=== PATIENT | male | born 1965 ===

== ENCOUNTER 2016-12-31 08:54 | Inpatient (IN) | payer OTHER ==
[2016-12-27 08:05] VITALS: BMI 23.1
[2016-12-31] MEDS ORDERED: Rocuronium 10 mg/ml (10 ml) ONE (13:21)
[2016-12-31] MEDS ORDERED: Propofol 10 mg/ml Inj (20 ML) ONE (13:21)
[2016-12-31] MEDS ORDERED: Succinylcholine Chloride 20 mg/ml Syr (5 ml) IV ONE (13:21)
[2016-12-31] MEDS ORDERED: Midazolam 2 MG/2 ML VIAL ONE (13:21)
[2016-12-31] MEDS ORDERED: Lidocaine Hydrochloride 5 ML INJ ONE (13:21)
[2016-12-31] MEDS ORDERED: Lactated Ringer's 1,000 ML IV ONE ×3 (13:25→16:00)
[2016-12-31] MEDS ORDERED: EPINEPHrine 1:1000 Nasal Sol(30mL) ONE (13:28)
[2016-12-31] MEDS: ceFAZolin IV 2 gm in Dextrose 2 GM/50 ML BAG IVPB ONE ×2 (13:46→13:50)
[2016-12-31] MEDS ORDERED: Rocuronium 10 mg/ml (5 ml) ONE (14:46)
[2016-12-31] MEDS ORDERED: Morphine 4 MG/ML VIAL ONE (15:58)
[2016-12-31] MEDS ORDERED: ceFAZolin IV 2 gm in Dextrose 2 GM/50 ML BAG IVPB ONE (17:37)
[2016-12-31] MEDS ORDERED: HYDROmorphone 0.5 mg/0.5 ml ISec IVP PRN (18:14)
[2016-12-31] MEDS ORDERED: ceFAZolin IV 1 gm in Dextrose 1 GM/50 ML BAG IVPB SCH (18:45)
[2016-12-31] MEDS ORDERED: Bupivacaine 0.5% Inj(30mL) ONE (18:50)
[2016-12-31] MEDS ORDERED: Bupivacaine HCl 0.5% PF (10 ml) Inj ONE (18:51)
[2016-12-31] MEDS ORDERED: Oxycodone/Acetaminophen 5/325 mg Tab PO PRN ×2 (19:00→22:07)
--- NOTE | 2016-12-31 19:06 | PCM.ANESB7 ---
Adductor Canal Block - Adductor Canal Block Date of Procedure: 12/31/16 Anesthiologist: tino Pre-Procedure Diagnosis: Acl tear Post-Procedure Diagnosis: same Procedure Performed: Adductor Canal Block Right - Procedure Adductor Canal Block: The procedure was explained to the patient that it is for the post-operative pain management. Consent was obtained after a thorough discussion with the patient regarding the benefits and possible complications of local anesthetic adductor canal block of the femoral nerve. Standard monitors, as defined by the ASA, were applied to the patient. Time-out was held with the circulating nurse to confirm the appropriate block. After applying supplemental oxygen and administering IV Sedation as needed, the patient was placed in supine position with and the operative leg was flexed slightly at the knee and externally rotated as needed, and was kept anatomically stable. The mid-thigh of the _ right lower extremity was exposed. The ultrasound transducer was then applied transversely along the medial aspect, about midway down the thigh and the femoral artery and vein were identified in appropriate relation with the sartorius muscle. At this time, the femoral nerve was visualized lateral to the femoral artery within the canal. After thorough identification, this area area was prepped with Chloroprep solution three times and 1 % Lidocaine was injected subcutaneously for topical anesthesia. At this point, a #22 gauge Stimuplex 4-inch needle was inserted in-plane in a [id number] orientation, and advanced toward the femoral nerve. Advancement was performed carefully under direct ultrasound visualization. Nerve stimulator was used After negative aspiration, __30___cc of __0.5___% ____ ____bupivicaine was injected a. Under ultrasound guidance the local anesthetics were observed spreading around the femoral nerve. The needle was removed intact and sterile dressing was applied. The patient had stable vital signs, was conscious and in no apparent distress. The patient tolerated the femoral nerve block well with stable vital signs and was prepared for subsequent surgery
[2016-12-31] MEDS: Sodium Chloride 0.9% 1,000 ML IV SCH ×2 (19:30→22:31)
--- NOTE | 2016-12-31 22:12 | PCM.SURG1 ---
Surgeon's Initial Post Op Note - Surgeon's Notes Surgeon: Toan Farah MD Customer Solutions Architect: Anshu Knutson PA-C Type of Anesthesia: General Endo, [facility] Pre-Operative Diagnosis: R knee #1 s/p ORIF bicondylar tibial plateau fx 2016. #2 MCL grade 3 tear. #3 medial meniscal tear. #4 synovitis Operative Findings: R knee #1 s/p ORIF bicondylar tibial plateau fx 03/2016. #2 MCL grade 3 tear. #3 medial meniscal tear (peripheral red-red zone complex tear ). #4 synovitis. #5 lateral meniscal tear Post-Operative Diagnosis: R knee #1 s/p ORIF bicondylar tibial plateau fx 2016. #2 MCL grade 3 tear. #3 medial meniscal tear. #4 lateral meniscal tear. #5 synovtitis Operation Performed: R knee #1 open MCL reconstruction w/ allograft semiT. #2 Arthroscopic Medial meniscal repair. #3 Arthroscopic partial lateral menisectomy. #4 Arthroscopic extensive synovectomy Specimen/Specimens Removed: specimen= none. complications= none. implants= Arthrex [id number] biocomposite interference screw for femoral MARILYN fixation, 28mm x 11 mm & ATB button for superficial MCL femoral fixation, 23 mm x 9mm screw for superficial MCL tibial fixation, 28mm x 9mm MARILYN tibial sided fixation. SemiT allograft x2. Linvatec all inside Sequent meniscal repair system for MMRepair, 4 implants placed Estimated Blood Loss: EBL {In ML}: 50 Blood Products Given: N/A Drains Used: No Drains Post-Op Condition: Good Date of Surgery/Procedure: 12/31/16 Time of Surgery/Procedure: 20:00
[2017-01-01] MEDS: ceFAZolin IV 2 gm in Dextrose 2 GM/50 ML BAG IVPB SCH ×3 (00:19→15:49)
--- NOTE | 2017-01-01 07:50 | RAD ---
PROCEDURE: Intraoperative Fluoroscopy. HISTORY: Tibial fracture repair FINDINGS: Fluoroscopic assistance was provided for proximal tibial fracture repair. Please refer to the operative report from Dr. DIOR
--- NOTE | 2017-01-01 07:57 | RAD ---
PROCEDURE: Intraoperative Fluoroscopy. HISTORY: RIGHT CHONDROPLASTY FINDINGS: Fluoroscopic assistance was provided for right tibial chondroplasty.
[2017-01-01 08:25] LABS: HEMATOCRIT 26.6 % (35.0-51.0); MEAN CELL VOLUME 87.8 fL (80.0-94.0); MEAN CORPUSCULAR HEMOGLOBIN 29.9 pg (27.0-31.0); MEAN CORPUSCULAR HGB CONC 34.1 g/dL (33.0-37.0); MEAN PLATELET VOLUME 9.5 fL (7.2-11.7); RED CELL DISTRIBUTION WIDTH 12.9 % (11.5-14.5)
[2017-01-01 08:28] LABS: WHITE BLOOD COUNT 9.2 K/uL (4.8-10.8)
[2017-01-01] MEDS: (Novolin R) Insulin Human Regular 100 units/ml vial SC SCH ×2 (08:31→12:32)
[2017-01-01 08:50] LABS: ALKALINE PHOSPHATASE 81 U/L (38-126); ALT/SGPT 34 U/L (21-72); AST/SGOT 26 U/L (17-59); BILIRUBIN,TOTAL 1.2 mg/dL (0.2-1.3); BLOOD UREA NITROGEN 19 mg/dL (9-20); CALCIUM 7.7 mg/dl (8.6-10.4); CARBON DIOXIDE 24 mmol/L (22-30); CHLORIDE 97 mmol/L (98-107); GFR AFRICAN-AMERICAN > 60; GLUCOSE,RANDOM 326 mg/dL (75-110); POTASSIUM 4.4 mmol/L (3.6-5.2); SODIUM 129 mmol/L (132-148); TOTAL PROTEIN 5.4 g/dL (6.3-8.3)
[2017-01-01 08:52] LABS: ALB/GLOB RATIO 1.4 (1.0-2.1)
[2017-01-01] MEDS ORDERED: Enoxaparin 40 mg Syringe SC SCH (10:00)
--- NOTE | 2017-01-01 17:05 | CP.PCM.HP ---
History of Present Illness - History of Present Illness History of Present Illness: Phone translation provided by Michele ([id number]) CC: "I couldn't walk" HPI: This is a 51M with PMH of HTN, HLD, and IDDM who present for pain in his right knee. Patient says he has had surgery on this knee in the past (March 2016) after mechanical fall but it did not fix his knee so now he is back for surgery with Dr. Farah again. Patient says the pain is so severe that he cannot walk on the leg at all. He denies numbness in the leg. Bending at the knee exacerbates the pain. He denies PMH: HTN, HLD, and IDDM Meds: see MAR PSH: right great toe amputations, Right knee Allergies: NKDA Present on Admission - Present on Admission Any Indicators Present on Admission: No Review of Systems - Review of Systems All systems: reviewed and no additional remarkable complaints except - Constitutional Constitutional: absent: Chills, Fever - EENT Eyes: absent: Blurred Vision Ears: absent: Decreased Hearing Nose/Mouth/Throat: absent: Nasal Congestion, Sore Throat - Cardiovascular Cardiovascular: absent: Chest Pain, Dyspnea, Palpitations - Respiratory Respiratory: absent: Cough - Gastrointestinal Gastrointestinal: absent: Abdominal Pain, Change in Bowel Habits, Constipation, Diarrhea, Hematochezia, Melena, Nausea, Vomiting - Genitourinary Genitourinary: absent: Difficulty Urinating, Hematuria - Musculoskeletal Musculoskeletal: Abnormal Gait, Arthralgias (Right knee) - Integumentary Integumentary: absent: Lesions - Neurological Neurological: absent: Confusion, Headaches, Syncope Past Patient History - Past Medical History & Family History Past Medical History?: Yes - Past Social History Smoking Status: Never Smoked - CARDIAC Hx Cardiac Disorders: Yes Hx Hypercholesterolemia: Yes Hx Hypertension: Yes - PULMONARY Hx Respiratory Disorders: No - NEUROLOGICAL Hx Neurological Disorder: No - HEENT Hx HEENT Problems: Yes Hx Cataracts: Yes - RENAL Hx Chronic Kidney Disease: No - ENDOCRINE/METABOLIC Hx Diabetes Mellitus Type 2: Yes - HEMATOLOGICAL/ONCOLOGICAL Hx Blood Disorders: No - INTEGUMENTARY Hx Dermatological Problems: No - MUSCULOSKELETAL/RHEUMATOLOGICAL Hx Musculoskeletal Disorders: Yes Hx Falls: No Hx Fractures: Yes (right leg) Other/Comment: right hand dry and discolored per patient moving furniture accident 3 months ago - GASTROINTESTINAL Hx Gastrointestinal Disorders: No - GENITOURINARY/GYNECOLOGICAL Hx Genitourinary Disorders: No - PSYCHIATRIC Hx Psychophysiologic Disorder: No Hx Substance Use: No - SURGICAL HISTORY Hx Surgeries: Yes Hx Amputation: Yes (RIGHT GREAT TOE) Hx Cataract Extraction: Yes (BILT.) Hx Eye Surgery: Yes Hx Open Reduction Internal Fixation: Yes (right leg) Hx Orthopedic Surgery: Yes (rt great toe amputation/right knee reconstruction??) Other/Comment: per patient procedure 8 yrs ago to check the heart, due to patient unable to blow in a machine properly - ANESTHESIA Hx Anesthesia: Yes Hx Anesthesia Reactions: No Hx Malignant Hyperthermia: No Has any member of the family had a problem w/ anesthesia?: No Meds Allergies/Adverse Reactions: Allergies Allergy/AdvReac Type Severity Reaction Status Date / Time No Known Allergies Allergy Verified 03/19/16 07:50 Physical Exam - Constitutional Appears: Non-toxic, No Acute Distress - Head Exam Head Exam: ATRAUMATIC, NORMAL INSPECTION, NORMOCEPHALIC - ENT Exam ENT Exam: Mucous Membranes Moist - Respiratory Exam Respiratory Exam: Clear to Auscultation Bilateral, NORMAL BREATHING PATTERN. absent: Accessory Muscle Use, Rales, Rhonchi, Wheezes, Respiratory Distress - Cardiovascular Exam Cardiovascular Exam: RRR, +S1, +S2, Systolic Murmur. absent: Bradycardia - GI/Abdominal Exam GI & Abdominal Exam: Normal Bowel Sounds, Soft. absent: Distended, Tenderness - Extremities Exam Additional comments: right LE bandaged and in knee immobilizer - Neurological Exam Neurological exam: Alert, Oriented x3 - Psychiatric Exam Psychiatric exam: Normal Affect, Normal Mood - Skin Skin Exam: Dry, Intact, Normal Color, Warm Results - Vital Signs Recent Vital Signs: Last Vital Signs Temp 98.3 F 01/01/17 07:25 Pulse 122 H 01/01/17 07:25 Resp 17 01/01/17 07:25 BP 143/76 01/01/17 07:25 Pulse Ox 97 01/01/17 07:25 - Labs Result Diagrams: 01/01/17 08:01 01/01/17 08:01 Labs: Laboratory Results - last 24 hr 12/31/16 12/31/16 12/31/16 18:46 19:25 19:25 WBC RBC Hgb Hct MCV MCH MCHC RDW Plt Count MPV Sodium Potassium Chloride Carbon Dioxide Anion Gap BUN Creatinine Est GFR ( Amer) Est GFR (Non-Af Amer) POC Glucose (mg/dL) 194 H Random Glucose Calcium Total Bilirubin AST ALT Alkaline Phosphatase Total Protein Albumin Globulin Albumin/Globulin Ratio RPR Hepatitis A IgM Ab Hep Bs Antigen Hep Bs Antibody Negative Hep B Core IgM Ab Hepatitis C Antibody HIV 1&2 Antibody Screen Negative 12/31/16 12/31/16 12/31/16 19:25 19:25 21:18 WBC RBC Hgb Hct MCV MCH MCHC RDW Plt Count MPV Sodium Potassium Chloride Carbon Dioxide Anion Gap BUN Creatinine Est GFR ( Amer) Est GFR (Non-Af Amer) POC Glucose (mg/dL) 273 H Random Glucose Calcium Total Bilirubin AST ALT Alkaline Phosphatase Total Protein Albumin Globulin Albumin/Globulin Ratio RPR Nonreactive Hepatitis A IgM Ab Negative Hep Bs Antigen Negative Hep Bs Antibody Hep B Core IgM Ab Negative Hepatitis C Antibody Negative HIV 1&2 Antibody Screen 01/01/17 01/01/17 01/01/17 06:37 08:01 08:01 WBC 9.2 D RBC 3.03 L Hgb 9.1 L D Hct 26.6 L MCV 87.8 MCH 29.9 MCHC 34.1 RDW 12.9 Plt Count 170 MPV 9.5 Sodium 129 L Potassium 4.4 Chloride 97 L Carbon Dioxide 24 Anion Gap 13 BUN 19 Creatinine 0.8 Est GFR ( Amer) > 60 Est GFR (Non-Af Amer) > 60 POC Glucose (mg/dL) 360 H Random Glucose 326 H Calcium 7.7 L Total Bilirubin 1.2 AST 26 ALT 34 Alkaline Phosphatase 81 Total Protein 5.4 L Albumin 3.1 L D Globulin 2.3 Albumin/Globulin Ratio 1.4 RPR Hepatitis A IgM Ab Hep Bs Antigen Hep Bs Antibody Hep B Core IgM Ab Hepatitis C Antibody HIV 1&2 Antibody Screen 01/01/17 01/01/17 11:45 16:23 WBC RBC Hgb Hct MCV MCH MCHC RDW Plt Count MPV Sodium Potassium Chloride Carbon Dioxide Anion Gap BUN Creatinine Est GFR ( Amer) Est GFR (Non-Af Amer) POC Glucose (mg/dL) 232 H 221 H Random Glucose Calcium Total Bilirubin AST ALT Alkaline Phosphatase Total Protein Albumin Globulin Albumin/Globulin Ratio RPR Hepatitis A IgM Ab Hep Bs Antigen Hep Bs Antibody Hep B Core IgM Ab Hepatitis C Antibody HIV 1&2 Antibody Screen Assessment & Plan (1) Knee fracture, right Assessment and Plan: * Dr. Farah following * Surgery for right proximal intra-articular tibial fracture Status: Acute (2) Hypertension Assessment and Plan: * Norvasc 10 mg PO QD Status: Acute (3) Diabetes mellitus Assessment and Plan: * Accuchecks * Novolin SC ACHS Status: Acute
--- NOTE | 2017-01-01 17:26 | CP.PCM.DIS ---
Provider - Provider Date of Admission: 12/31/16 14:12 Attending physician: Anuel Rojas DO Time Spent in preparation of Discharge (in minutes): 29 Hospital Course - Lab Results Lab Results: Most Recent Lab Values WBC 9.2 K/uL (4.8-10.8) D 01/01/17 08:01 RBC 3.03 Mil/uL (4.40-5.90) L 01/01/17 08:01 Hgb 9.1 g/dL (12.0-18.0) L D 01/01/17 08:01 Hct 26.6 % (35.0-51.0) L 01/01/17 08:01 MCV 87.8 fL (80.0-94.0) 01/01/17 08:01 MCH 29.9 pg (27.0-31.0) 01/01/17 08:01 MCHC 34.1 g/dL (33.0-37.0) 01/01/17 08:01 RDW 12.9 % (11.5-14.5) 01/01/17 08:01 Plt Count 170 K/uL (130-400) 01/01/17 08:01 MPV 9.5 fL (7.2-11.7) 01/01/17 08:01 Sodium 129 mmol/L (132-148) L 01/01/17 08:01 Potassium 4.4 mmol/L (3.6-5.2) 01/01/17 08:01 Chloride 97 mmol/L (98-107) L 01/01/17 08:01 Carbon Dioxide 24 mmol/L (22-30) 01/01/17 08:01 Anion Gap 13 (10-20) 01/01/17 08:01 BUN 19 mg/dL (9-20) 01/01/17 08:01 Creatinine 0.8 mg/dL (0.8-1.5) 01/01/17 08:01 Est GFR ( Amer) > 60 01/01/17 08:01 Est GFR (Non-Af Amer) > 60 01/01/17 08:01 POC Glucose (mg/dL) 221 mg/dL (65-110) H 01/01/17 16:23 Random Glucose 326 mg/dL (75-110) H 01/01/17 08:01 Calcium 7.7 mg/dl (8.6-10.4) L 01/01/17 08:01 Total Bilirubin 1.2 mg/dL (0.2-1.3) 01/01/17 08:01 AST 26 U/L (17-59) 01/01/17 08:01 ALT 34 U/L (21-72) 01/01/17 08:01 Alkaline Phosphatase 81 U/L (38-126) 01/01/17 08:01 Total Protein 5.4 g/dL (6.3-8.3) L 01/01/17 08:01 Albumin 3.1 g/dL (3.5-5.0) L D 01/01/17 08:01 Globulin 2.3 gm/dL (2.2-3.9) 01/01/17 08:01 Albumin/Globulin Ratio 1.4 (1.0-2.1) 01/01/17 08:01 RPR Nonreactive (NONREACTIVE) 12/31/16 19:25 Hepatitis A IgM Ab Negative (NEGATIVE) 12/31/16 19:25 Hep Bs Antigen Negative (NEGATIVE) 12/31/16 19:25 Hep Bs Antibody Negative (NEGATIVE) 12/31/16 19:25 Hep B Core IgM Ab Negative (NEGATIVE) 12/31/16 19:25 Hepatitis C Antibody Negative (NEGATIVE) 12/31/16 19:25 HIV 1&2 Antibody Screen Negative (NEGATIVE) 12/31/16 19:25 - Hospital Course Hospital Course: This is a 51 year old male with a history of hyperlipid, DM, HTN who has been having right knee pain for some time now since March 2016 after suffering a fall and has been following the [facility]. He was brought in for orthopedic surgery of the right knee an ORIF bicondylar tibial plateau, an MCL grade 3 tear, a medial meniscal tear and synovitis of the joint. On 12/31 he had a right knee open MCL reconstruction w/ allograft semi, am arthroscopic medial meniscal repair, an arthroscopic partial lateral menisectomy and finally a arthroscopic synovectomy. He did not need any drains. When I saw him the next day on the medical floors he felt well. His pain was controlled and I spoke with the orthopedic surgeon and he will need to be discharged with pain medication as well as shots of lovenox BID. These were already ready from the clinic and given to the patient to go home with. He understands he needs to follow up with the clinic as well as with surgery. He was advised to resume all his previous home medications as well. thank you Anuel Rojas Discharge Exam - Eye Exam Eye Exam: EOMI, Normal appearance - Respiratory Exam Respiratory Exam: Clear to PA & Lateral, NORMAL BREATHING PATTERN, UNREMARKABLE - Cardiovascular Exam Cardiovascular Exam: REGULAR RHYTHM - GI/Abdominal Exam GI & Abdominal Exam: Normal Bowel Sounds, Unremarkable - Extremities Exam Additional comments: Right knee covered with dressing There are no drains - Neurological Exam Neurological exam: Alert, CN II-XII Intact, Oriented x3 - Psychiatric Exam Psychiatric exam: Normal Affect, Normal Mood - Skin Skin Exam: Normal Color, Warm Discharge Plan - Follow Up Plan Condition: GOOD Disposition: HOME/ ROUTINE Instructions: Oxycodone/Acetaminophen (By mouth), Enoxaparin (By injection), Pain Management After Surgery (DC) Referrals: Toan Bergeron MD [Staff Provider] -
[2017-01-01 19:22] VITALS: BP 141/82; PULSE 86; RESP 18; TEMP 98; O2SAT 96
--- NOTE | 2017-01-24 20:13 | OP ---
DATE OF PROCEDURE: 12/31/2016 PREOPERATIVE DIAGNOSES: Right knee: 1. Status post open reduction and internal fixation of complex bicondylar tibia plateau fracture on 04/07/2016 at [facility]. 2. Grade 3 complete medial collateral ligament tear with instability with anteromedial rotatory instability as well. 3. Medial meniscal tear. 4. Synovitis. POSTOPERATIVE DIAGNOSES: Right knee: 1. Status post complex open reduction and internal fixation of complex bicondylar tibia plateau fracture on 04/07/2016. 2. Grade 3 medial collateral ligament tear with instability. 3. Grade 3 anteromedial rotatory instability with posterior oblique ligament tear. 4. Peripheral medial meniscal tear. 5. Peripheral lateral meniscal tear. 6. Synovitis. PROCEDURES PERFORMED: Right knee: 1. Open medial collateral ligament reconstruction with allograft hamstring. 2. Open posterior oblique ligament reconstruction with allograft hamstring. 3. Arthroscopic medial meniscal repair. 4. Arthroscopic partial lateral meniscectomy. 5. Arthroscopic extensive synovectomy and debridement. SURGEON: Toan Farah M.D. SPA SUPERVISOR: Paula Knutson PA-C. JUSTIFICATION FOR SPA SUPERVISOR: Paula Knutson is a certified physician costumer assistant whose skilled surgical services was absolute necessity for successful completion of the procedure and she provided skilled surgical assistance with positioning of the patient, positioning of extremity, management of surgical fernandez, retraction of neurovascular structures, preparation of allograft graft for the posterior oblique ligament reconstruction and the medial collateral ligament reconstruction, management of arthroscopic equipments and facilitating arthroscopic medial meniscal repair and partial lateral meniscectomy, placement and preparation of distal femur tunnels for the MCL and posterior oblique reconstruction, placement of proximal tibia tunnels for the MCL and posterior oblique reconstruction tunnels, passage of the graft and femoral-sided and tibial-sided fixation, wounds closure, and placement in postop brace. Paula Knutson PA-C was present for the entire case and was an absolute necessity for successful completion of the procedure. ANESTHESIA: General endotracheal anesthesia with a postop regional nerve block placed by Anesthesia staff in the PACU. ESTIMATED BLOOD LOSS: 50 mL. TOURNIQUET TIME: 129 minutes at 300 mmHg. DRAINS: None. COMPLICATIONS: None. IMPLANTS: 1. Arthrex 28-mm x 10-mm biocomposite interference screw for femoral-sided posterior oblique ligament fixation, 28-mm x 9-mm biocomposite interference screw for tibial-sided posterior oblique ligament fixation, 28-mm x 11-mm biocomposite interference screw and ATB button for medial collateral ligament femoral-sided fixation, 23-mm x 9-mm biocomposite interference screw for MCL tibial-sided fixation, semitendinosus allograft hamstring x2 (one graft for the MCL reconstruction and one graft for the posterior oblique ligament reconstruction). 2. [employer] All-Inside Sequent meniscal repair system for the medial meniscal repair for a total of 4 implants placed/1 kit opened. SPECIMENS: None. DISPOSITION: The patient was extubated and transferred to PACU in stable condition and tolerated the procedure well. INDICATIONS FOR PROCEDURE: The patient is a 51-year-old male with a past medical history significant for diabetes and hypertension, who presented to the office under my care for the first time at [facility] on 03/31/2016 with right knee pain and swelling since an injury at work on 03/16/2016. This is a Workers' Compensation case and the patient was injured at work on 03/16/2016. The patient stated that this was a mechanical fall, landing on his right leg, resulting in immediate 10/10 pain, swelling and deformity localized to the right proximal tibia and knee. He rested for a few days thinking that the pain would improve, but it did not and finally, he presented to the emergency room at [facility] on 03/19/2016 where he was evaluated by the ER staff and after review of imaging, he was diagnosed with a right proximal tibial plateau fracture that was displaced and he was placed in a knee immobilizer and instructed to be strict non-weightbearing and told to follow up with an orthopedic surgeon as an outpatient. On evaluation in my office on 03/31/2016, the x-rays were taken in the office that showed a displaced, compressed, collapsed bicondylar tibial plateau fracture with significant metaphyseal bone loss and loss of the height of the tibia. This was from him walking around and bearing weight on the tibia plateau fracture. He underwent a CAT scan of the right knee done at [facility] on 03/19/2016 in the ER which was read as: 1. Comminuted, mildly displaced transverse intraarticular fracture of the proximal tibia with articular surfaces displaced both medially and laterally at the plateau. 2. Tiny intra-articular surface densities are noted. 3. Small joint effusion and hemarthrosis. 4. Curvilinear high attenuation seen at the posterior to the proximal tibia, representing nonspecific calcification. I reviewed the CAT scan with him as well as his MRI at that point in time and the patient underwent his first part of his surgery on 04/07/2016 under my care. He underwent on 04/07/2016, right knee: 1. Open reduction and internal fixation of bicondylar tibial plateau fracture. 2. Bone graft to the metaphyseal bone loss area underneath the fracture and fixation. 3. Open lateral collateral ligament repair. 4. Arthroscopic-assisted internal fixation of bicondylar tibial plateau fracture. 5. Arthroscopic partial medial meniscectomy and partial lateral meniscectomy. 6. Arthroscopic extensive synovectomy with resection of plica and debridement of anterior cruciate ligament tear. 7. Closed treatment of fibular head fracture. He recovered from that surgery well and was compliant with all of his postoperative directions and care. His wounds healed without any complications and the patient was able to regain his range of motion and had minimal pain localized to the fracture. Serial x-rays in the office showed that the fracture although exhibited delayed healing time did successfully show good evidence of healing of the fracture as eventually he did fill in the bone defects. Over the course of his rehab as we were beginning to prepare him for re-conditioning to return to work, the patient consistently complained of instability at the knee. We were aware that he had an MCL tear and an ACL tear to go along with the constellation of his initial trauma. His initial injury at work resulted in: 1. Bicondylar displaced tibial plateau fracture. 2. Complete ACL tear. 3. Complete MCL tear. 4. Medial meniscal tear. 5. Lateral meniscal tear. 6. Significant bone defect at the level of the bicondylar plateau fracture. 7. Post-traumatic synovitis. 8. Comminuted, displaced fibular head fracture. 9. Lateral collateral ligament tear. His initial surgery was done on 04/07/2016 resulted in successful fixation of the bicondylar plateau fracture with bone grafting, successful open lateral collateral ligament repair, synovectomy, and partial medial and lateral meniscectomies. As stated before, as he continued to progress over the next 6 months, he complained of significant instability and medial-sided knee pain. We attempted to repeat his MRI. The initial MRI of the right knee done at [facility] on 03/31/2016 prior to the first surgery was read as: 1. Acute comminuted and mildly displaced fracture of the proximal right tibia extending to articular surface and tibia plateau. 2. Moderate right knee joint effusion. 3. Complete tear of the proximal portion of the ACL. 4. Lateral meniscus anterior horn tear. 5. Medial and lateral collateral ligament tears. 6. Soft tissue edema and post-traumatic changes seen around the right knee. 7. Bone marrow edema of the proximal right fibula suggestive of small non-displaced fracture. Finally, at 6 months post surgery and compliant use of his custom ACL/MCL brace, the patient still had significant MCL instability with grade 3 instability of the MCL, also visualized on stress x-rays taken in my office. ACL instability was still significant. He also had a positive medial Destiny and lateral Destiny indicating medial and lateral meniscal tears. We attempted to repeat the MRI with metal subtraction and a repeat MRI was done at [facility] on 11/03/2016 read as: 1. Limited study due to large artifacts from hardware, tibia plateau and proximal tibia shaft. 2. Cannot assess ACL and meniscus of the right knee due to large artifacts. 3. Small joint effusion. 4. Mild patellar chondromalacia. Clinical examination at 8 months post initial surgery and trauma despite his compliance yielded grade 3 MCL tear and instability with grade 3 anteromedial rotatory instability indicating a posterior oblique ligament tear as well, grade 3 ACL tear, medial and lateral meniscal tears. I reviewed at length with the patient with the use of his [place]-speaking formation fracturing operator his treatment options in order to attempt to get him back to work as soon as possible. He was indicated for right knee surgery stage II. This second surgery would consist of diagnostic arthroscopy with most likely medial and lateral meniscal repairs, open MCL reconstruction with allograft, and open posterior oblique ligament reconstruction with allograft. Due to the amount of hardware at the proximal tibia, it is not feasible to undergo an ACL reconstruction due to the need for placement of the tibial tunnel for the ACL reconstruction. With his diabetes, I did not think it was feasible to remove any hardware at this point in time to make room for the tunnel and therefore, we decided that his ACL tear at this point in time would be treated conservatively with ACL bracing, but we can restore a significant amount of his instability by doing an MCL and posterior oblique reconstruction, and we can remove a significant amount of his pain by doing arthroscopic medial and lateral meniscal repairs. He was referred to his primary care physician Dr. Torres at the [facility] at [facility] for medical clearance and PATs and the procedure was scheduled after we obtained an authorization from Workers' Comp. Once again, the plan was to keep the hardware in place due to his diabetes and delayed healing of bone, it was not advisable to remove any hardware at that point in time and therefore, an ACL construction was not feasible. The plan was for open MCL reconstruction with allograft as well as open posterior oblique reconstruction with allograft and diagnostic arthroscopy to evaluate the chondral surface from the plateau fracture as well as arthroscopic medial and lateral meniscal repairs and synovectomy. The procedure was scheduled at [facility] on 12/31/2016. DESCRIPTION OF PROCEDURE: The patient was identified in the preoperative holding area and the right knee was marked for surgery. Once again as described above, the risks, benefits, and alternatives of the procedure were discussed at length with the patient with the risks including but not limited to infection, neurovascular damage, need for further surgery, development of blood clots including DVT and PE, development of chronic pain and disability, failure of graft, failure of fixation, failure of meniscal repair, advanced chondrolysis and degenerative development, stiffness, inability to return to pre-injury level of activity and return to work, anesthesia reactions, bleeding, and . After answering all of his questions with the use of his [place]-speaking formation fracturing operator, the patient accepted the risk and informed consent was obtained. He had watched the surgical animation videos and diagnosis animation videos in my office in [place] and stated that he understood the multiple diagnoses as well as the procedure to be done. I reviewed at length with him the postop rehab protocol and he stated that he understood the rehab protocol at length and was going to comply in order to maximize chances of having a successful outcome after surgery, After a brief discussion with the Anesthesia staff, 2 g of Ancef were administered with IV antibiotics perioperatively and the patient was taken to the operating room and placed on the well-padded operating room table that was radiolucent. We ensured that all neurovascular structures that were superficial were well padded. An initial time-out was done with the surgeon, Anesthesia staff, and OR staff, all in agreement with the patient, procedure being done, and the extremity being operated on. General anesthesia was administered without difficulty or complication. An examination under anesthesia was then carried out. EXAMINATION UNDER ANESTHESIA: Right knee with no warmth, no swelling, or erythema, surgical wounds well-healed from previous surgery, full range of motion compared to contralateral knee, significant instability with 2 to 3+ anterior drawer with a firm end-point, 2 to 3+ Chago with a firm end-point, 2+ pivot shift, 3+ opening to medial joint line at 0 degrees, 3+ opening to medial joint line with valgus stress at 30 degrees, negative opening to lateral joint line at 0 or 30 degrees varus stress, negative posterior drawer, negative Hcago, negative reverse Chago, patella with normal tracking and no evidence of instability or crepitus, significant anteromedial rotatory instability 3+, negative posterolateral corner drawer, and negative recurvatum. CONTINUATION OF PROCEDURE: A tourniquet was placed high on the right thigh and set to 300 mmHg. The right lower extremity was prepped and draped in standard sterile fashion. Final time-out was done with the surgeon, Anesthesia staff, and OR staff, all in agreement with the patient, procedure being done, and the extremity being operated on. The limb was exsanguinated and tourniquet was inflated for a total tourniquet time of 129 minutes at 300 mmHg. While my costumer assistant prepared the allograft, I started with the diagnostic arthroscopy. An anterolateral portal was created with stab incision through skin down through the subcutaneous tissue down to the level of the capsule. This was done after the knee was insufflated with 50 mL of normal saline. Blunt arthroscopic trocar and cannula were inserted into the suprapatellar pouch. With the use of spinal needle localization, optimal entry point for the anteromedial portal was created with stab incision through the skin down through the subcutaneous tissue down to the level of the capsule. An accessory cannula was inserted into the knee and the knee was copiously irrigated for better visualization and removal of synovial debris. DIAGNOSTIC ARTHROSCOPY: Attention was first turned towards the suprapatellar pouch where there was no evidence of loose bodies or adhesions. Attention was then turned towards the patellofemoral joint where intact patella and trochlear cartilages were seen with no full-thickness defects with grade 1 chondromalacia at best with significant synovitis and medial symptomatic plica band. Attention was then turned towards the medial gutter where the thickened hypertrophic medial plica band was seen as well as the hypertrophic synovitis. Attention was then turned towards the medial compartments where the previous partial medial meniscectomy was seen with smooth contour maintained of the medial meniscus, but at the periphery, there appeared to be a peripheral tear with significant instability and hypermobility of the medial meniscus. Attention was then turned towards the notch where the ACL tear was seen. Attention was then turned towards the lateral compartment where a peripheral tear of the lateral meniscus was identified as well. The cartilage of both the medial and lateral tibia plateau appeared to be pristine with the anatomic reduction maintained and no intra-articular evidence of the plateau fracture long-term was seen. With the use of the radiofrequency ablation and arthroscopic shaver, an extensive synovectomy was carried out debriding the plica bands and scar tissue formation as well as the hypertrophic synovitis anteriorly as well as the hypertrophic fat pads while maintaining good hemostasis. Once the extensive synovectomy was carried out to satisfaction, attention was then turned towards the lateral meniscus treatments. The lateral meniscus exhibited complex white-white zone tearing that was not amenable to repair. With the use of the arthroscopic meniscal biters and radiofrequency ablation, the complex anterior horn tearing was smoothened out with the radiofrequency ablation and a smooth contour was established. The white-white zone free surface tearing was then debrided with the meniscal biter, radiofrequency ablation, and the arthroscopic shaver to a smooth contour while maintaining as much of the mes[place] lateral meniscus as much as possible to preserve the joint, removing 5% to 10% of the lateral meniscus overall completing the partial lateral meniscectomy. Once this was done to satisfaction, attention was then turned towards the medial meniscal tear. Once again, the medial meniscus had undergone a partial medial meniscectomy at the previous surgery and the smooth contour was still maintained. At the periphery at the posteromedial corner, most likely from the repeated instability from the grade 3 anteromedial rotatory instability and MCL tear, there was a peripheral detachment/meniscal capsular separation. With the use of the [employer] All-Inside Sequent meniscal repair system with placements of 4 implants in total with good capsular side of fixation, an all-inside meniscal repair was carried out. With alternating vertical and horizontal mattress suture placement at the posteromedial corner, a stable all-inside meniscal repair was carried out to satisfaction. Once this was completed and the meniscal repair was tested and it was felt that we established our stability for the medial meniscus, attention was then turned towards the extra-articular portion of the case. All arthroscopic fluid and debris were removed from the knee joint and attention was then turned towards the MCL and posterior oblique ligament reconstruction. With the use of biplanar fluoroscopic imaging, stress images were taken revealing the anteromedial rotatory instability grade 3 as well as the grade 3 MCL instability with valgus stress at 30 and 0 degrees. These would be compared to the post MCL and posterior oblique reconstruction fluoroscopic images and stress examination as well. A curvilinear incision starting at the adductor tubercle at the medial aspect of the knee joint extending down to the pes insertion was carried out through the skin down to the subcutaneous tissues maintaining good hemostasis down to the level of the Sartorial fascia. Once the level of the joint line was confirmed, a ruler was used to measure 6 cm distal to the level of the joint line to establish the insertion point for the superficial MCL. While maintaining the integrity of the hamstring insertions at the pes insertion, optimal placement point for the superficial MCL 6 cm distal to the joint line was identified and a guidewire was placed. Once again, there was previous hardware medially from the first surgery and care was taken to avoid intersecting placement with the hardware. Once the guidewire was established in good position, a 7-mm cannulated reamer was passed over the guidewire to create the docking site for the distal aspect of the MCL reconstruction at the tibia side. The guidewire was placed bicortically to be able to pass the suture through. Attention was then turned towards exposure of the posterior oblique ligament attachment. The joint line was carefully dissected and we were able to get exposure to the posteromedial corner. The semimembranosus 5 attachment limbs were identified and the posteromedial aspect of the proximal tibia was palpated, and we were able to find the posterior oblique ligament mesa grande insertion points. Once this was debrided off overlying soft tissue, a guidewire was advanced bicortically and a 7-mm cannulated reamer was passed over the guidewire to create the docking site for the posterior oblique ligament. We then turned attention to the distal femoral insertion sites for the MCL and the posterior oblique ligament. Adductor tubercle was identified as well as the medial gastroc insertion. Once these landmarks were established, the Arthrex medial collateral ligament guide was used to place a guidewire at the [place] MCL insertion at the medial femoral condyle medial aspect. Once this was established, a second guidewire was placed parallel with the same trajectory of [id number] trajectory to avoid the notch, placed bicortically, exiting laterally to establish docking sites for the posterior oblique ligament at the distal femur. Once both guidewires were in good position and confirmed with biplanar fluoroscopic imaging, an 8-mm cannulated reamer was then passed over the guidewire to create docking sites for the femoral side of the MCL and the posterior oblique ligament. The graft that was prepared by my costumer assistant was whipstitched on both sides and a Beath pin was used to pass a passing suture through both distal femur tunnels. The tunnels were knocked [id number] creating a 35-mm docking site for the graft on both ends. Both grafts were passed through the distal femur through their appropriate docking tunnels with the suture exiting laterally. While my costumer assistant held tension, the biocomposite interference screws were placed at the docking sites to fixate the graft of the distal femur. For the posterior oblique ligament fixation, a 28-mm x 10-mm biocomposite interference screw from [employer] was placed successfully with good bite achieved. For the MCL docking site, a 28-mm x 11-mm screw was placed after a 10-mm wet screw was attempted and we felt that the fixation was not adequate and there was poor bone quality. An 11-mm x 28-mm length screw was then placed successfully with good fixation achieved. The suture that exited laterally was then reinforced with an ATB button to ensure no failure on the femoral side to the MCL reconstruction which was very important for this patient's function. Once the femoral-sided fixation was established to satisfaction with placement of the ATB button to reinforce the MCL reconstruction, attention was then turned towards the tibial-sided fixation. The MCL graft was passed under the Sartorial fascia in layer 2 of the medial knee just adjacent to the capsule. It was brought down distally over the pes insertion to the distal docking site for the superficial MCL. The suture for the graft was passed through and graft tension was held by my costumer assistant while a 23-mm x 9-mm biocomposite interference screw was placed securing the graft in position while a varus stress was held on the knee. Once the MCL graft was secured to satisfaction and tested and found to be stable, attention was turned towards the posterior oblique ligament stabilization. The same steps were repeated with placement of a 28-mm x 9-mm screw for the posterior oblique ligament fixation after the graft was passed into the docking site and my costumer assistant held the exiting suture firmly on the lateral aspect of the tibia. Once the screw was placed in satisfaction while maintaining a varus stress on the knee, the knee was taken through a range of motion and stability tested using fluoroscopic imaging, Indeed, MCL stability and anteromedial rotatory stability were achieved with negative opening to the medial joint line at 0 or 30 degrees of Valgus stress and negative anteromedial rotatory instability. The wound was copiously irrigated, tourniquet was deflated, and good hemostasis was achieved. The wound was re-approximated first with repair of Sartorial fascia and deep tissue with #1 Vicryl suture. Prior to the repair, a posteromedial capsule tightening was carried out with the use of #2 FiberWire suture with a [id number] suture configuration. Deep tissue was then re-approximated, then fascia was re-approximated with #1 Vicryl suture followed by subcutaneous tissue re-approximated with 2-0 Vicryl suture followed by jessica for skin. The small incision made laterally for placement of the ATB button as back-up fixation for the MCL reconstruction was copiously irrigated as well and re-approximated with #1 Vicryl suture for deep tissue and iliotibial band followed by 2-0 Vicryl suture for subcutaneous tissue followed by jessica for skin. Arthroscopic camera was then re-inserted into the joint and indeed under direct visualization, we could see that the medial compartment was tightened down and the medial meniscus repair was confirmed to be stable and holding in good position. All arthroscopic fluid was removed and with the help of the Anesthesia staff, 5 mL of PRP were injected intra-articularly as well as at the medial joint line adjacent to the MCL and posterior oblique ligament reconstruction. Prior to wound closure, a #2 FiberWire suture was used to cinch down the MCL graft at the level of the capsule to re-create the superficial and deep MCL. Due to the amount of hardware at the medial plateau extending from the lateral plateau for the bicondylar tibia plateau fracture fixation previously, there was no area that an anchor could be placed into the bone to cinch down the MCL as dictated by the LaPrade technique and therefore, multiple #2 FiberWire sutures were used to secure the MCL graft to the medial capsule at the level of the joint line. The arthroscopic portals were re-approximated with 2-0 Vicryl suture for deep tissue followed by jessica for skin. Sterile dressings were applied followed by a layer of sterile cast padding from the toes up to the superior thigh followed by a layer of compressive Julius wrap from the toes up to the superior thigh. The knee was then placed in a postop hinged knee brace fitted for the patient prior to awakening from anesthesia provided by my office. The patient was extubated from general anesthesia and transferred to PACU in stable condition having tolerated the procedure well. DISPOSITION: The patient will remain as an inpatient for observation for approximately 23 hours. He will receive adequate pain control. He will work with Physical Therapy and be strict non-weightbearing to the right lower extremity. He will be started on DVT prophylaxis in the form of Lovenox 40 mg once daily starting postoperative day #1. He will be monitored by the hospitalist team to monitor his medical status after the surgery. Once he is discharged from the hospital, he will follow up in my office within 1 week and already has his postoperative appointment set up. He will be given a prescription for Percocet for pain control. Toan Farah MD
== END 2017-01-01 18:45 | disposition home or self-care (01) | DRG 489 ==
LOC: C.SDS 08:54 → C.9S 14:12 → C.6T 21:03
PROVIDERS: ADMIT Hospitalist; ATTEND Hospitalist
PROC: 0SBC4ZZ Excision of Right Knee Joint, Percutaneous Endoscopic Approach (ICD-10-PCS; 2016-12-31)
PROC: 0SQC4ZZ Repair Right Knee Joint, Percutaneous Endoscopic Approach (ICD-10-PCS; 2016-12-31)
PROC: 0MRN0KZ Replacement of Right Knee Bursa and Ligament with Nonautologous Tissue Substitute, Open Approach (ICD-10-PCS; principal; 2016-12-31 13:25)
PROC: 0MRN0KZ Replacement of Right Knee Bursa and Ligament with Nonautologous Tissue Substitute, Open Approach (ICD-10-PCS; 2016-12-31 13:25)
DX: S82.141S Displaced bicondylar fracture of right tibia, sequela (principal); S83.241S Other tear of medial meniscus, current injury, right knee, sequela; S83.411S Sprain of medial collateral ligament of right knee, sequela; S83.511S Sprain of anterior cruciate ligament of right knee, sequela; M22.41 Chondromalacia patellae, right knee; M65.861 Other synovitis and tenosynovitis, right lower leg; W19.XXXS Unspecified fall, sequela; I10 Essential (primary) hypertension; E11.9 Type 2 diabetes mellitus without complications; E78.00 Pure hypercholesterolemia, unspecified; E78.5 Hyperlipidemia, unspecified; Z79.4 Long term (current) use of insulin; Z89.411 Acquired absence of right great toe

== ENCOUNTER 2017-03-28 11:54 | Emergency (ER) | payer OTHER ==
[2017-03-28 13:42] VITALS: BMI 23.1
--- NOTE | 2017-03-28 14:48 | RAD ---
HISTORY: r/o infiltrate COMPARISON: Chest x-ray performed 02/25/2017 TECHNIQUE: Chest PA and lateral FINDINGS: LUNGS: No focal consolidation. Please note that chest x-ray has limited sensitivity for the detection of pulmonary masses. PLEURA: No significant pleural effusion identified. No definite pneumothorax . CARDIOVASCULAR: Heart size appears within normal limits. OSSEOUS STRUCTURES: Mild degenerative changes. VISUALIZED UPPER ABDOMEN: Unremarkable. OTHER FINDINGS: None. IMPRESSION: No focal consolidation identified.
[2017-03-28 15:09] VITALS: BP 121/75; PULSE 98; RESP 18; TEMP 98.2; O2SAT 100
--- NOTE | 2017-03-28 18:33 | C.PDOC ---
History Of Present Illness 52 y/o male presents to the ER complaining of productive cough which has been present for the past 4 days. Patient states that he is coughing up greenish phlegm. Patient denies any fever, chest pain, and SOB. Patient also denies any recent travel and sick contacts. Chief Complaint (Nursing): Fever History Per: Patient History/Exam Limitations: no limitations Onset/Duration Of Symptoms: Days Current Symptoms Are (Timing): Still Present Associated Symptoms: Cough Severity: Moderate Past Medical History Reviewed: Historical Data, Nursing Documentation, Vital Signs Vital Signs: Last Vital Signs Temp 98.2 F 03/28/17 15:08 Pulse 98 H 03/28/17 15:08 Resp 18 03/28/17 15:08 BP 121/75 03/28/17 15:08 Pulse Ox 100 03/28/17 20:03 - Medical History PMH: Diabetes, Fractures (right leg uses a cane to walk with), HTN, Hypercholesterolemia Denies: Chronic Kidney Disease Other Surgeries: Hx of orthopedic surgery - [facility] Procedures (12/31/16) EXCISION OF RIGHT KNEE JOINT, PERC ENDO APPROACH (12/31/16) OTHER SKIN & SUBQ I D (06/09/14) REPAIR RIGHT KNEE JOINT, PERCUTANEOUS ENDOSCOPIC APPROACH (12/31/16) REPAIR RIGHT KNEE REGION, OPEN APPROACH (04/07/16) REPOSITION RIGHT TIBIA WITH INT FIX, OPEN APPROACH (04/07/16) REPOSITION RIGHT TIBIA, EXTERNAL APPROACH (04/07/16) SUPPLEMENT RIGHT TIBIA WITH SYNTH SUB, OPEN APPROACH (04/07/16) TOE AMPUTATION (06/09/14) VENOUS CATHETERIZATION NEC (06/09/14) Family History: States: Unknown Family Hx - Social History Hx Tobacco Use: No Hx Alcohol Use: Yes (social drinker, sparingly) Hx Substance Use: No - Immunization History Hx Tetanus Toxoid Vaccination: No Hx Influenza Vaccination: No Hx Pneumococcal Vaccination: No Review Of Systems Except As Marked, All Systems Reviewed And Found Negative. Constitutional: Negative for: Fever Cardiovascular: Negative for: Chest Pain Respiratory: Positive for: Cough. Negative for: Shortness of Breath Physical Exam - Physical Exam Appears: Non-toxic, No Acute Distress Skin: Normal Color, Warm Head: Atraumatic, Normacephalic Eye(s): bilateral: Normal Inspection Ear(s): Bilateral: Normal Nose: Normal Oral Mucosa: Moist Throat: Normal, No Erythema, No Exudate Neck: Supple Chest: Symmetrical Cardiovascular: Rhythm Regular Respiratory: Normal Breath Sounds, No Accessory Muscle Use, No Rales, No Rhonchi , No Wheezing Extremity: Normal ROM Neurological/Psych: Oriented x3, Normal Speech, Normal Motor, Normal Sensation ED Course And Treatment O2 Sat by Pulse Oximetry: 100 (RA) Pulse Ox Interpretation: Normal - Other Rad No standard instances X-Ray: Viewed By Me, Read By Radiologist Interpretation: HISTORY: r/o infiltrate. COMPARISON: Chest x-ray performed 01/2018. TECHNIQUE: Chest PA and lateral. FINDINGS: LUNGS: No focal consolidation. Please note that chest x-ray has limited sensitivity for the detection of pulmonary masses. PLEURA: No significant pleural effusion identified. No definite pneumothorax . CARDIOVASCULAR: Heart size appears within normal limits. OSSEOUS STRUCTURES: Mild degenerative changes. VISUALIZED UPPER ABDOMEN: Unremarkable. OTHER FINDINGS: None. IMPRESSION: No focal consolidation identified. Disposition - Disposition Referrals: [facility] [Outside] [facility] [Outside] Disposition: HOME/ ROUTINE Disposition Time: 14:50 Condition: GOOD Additional Instructions: Thank you for letting us take care of you today. The emergency medical care you received today was directed at your acute symptoms. If you were prescribed any medication, please fill it and take as directed. It may take several days for your symptoms to resolve. Return to the Emergency Department if your symptoms worsen, do not improve, or if you have any other problems. Please contact your doctor or call one of the physicians/clinics you have been referred to that are listed on the Patient Visit Information form that is included in your discharge packet. Bring any paperwork you were given at discharge with you along with any medications you are taking to your follow up visit. Our treatment cannot replace ongoing medical care by a primary care provider (PCP) outside of the emergency department. Thank you for allowing the [facility] team to be part of your care today. Follow up with in the clinic this week for re-evaluation and further management. Araceli por dejarnos atenderlo hoy. La atencin mdica de emergencia que recibi hoy estaba dirigida a rosi sntomas agudos. Si le prescribieron algn medicamento, llnelo y tome segn las indicaciones. Rosi sntomas pueden tardar varios mclean en resolverse. Regrese al Departamento de Emergencia si rosi s ntomas empeoran, no mejoran o si tiene algn otro problema. Comunquese con ahumada mdico o llame a savannah de los mdicos / clnicas a los que shirley sido referido que figura en el formulario de Informacin de visita del paciente que se incluye en ahumada paquete de dahlia. Traiga todos los documentos que recibi al momento del dahlia junto con los medicamentos que est tomando en ahumada visita de seguimiento. Nuestro tratamiento no puede reemplazar la atencin mdica en curso por parte de un proveedor de atencin primaria (PCP) fuera del departamento de emergencias. Araceli por permitir que el equipo de [facility] sea parte de ahumada cuidado hoy. Boni un seguimiento en la clnica esta semana para octavio reevaluacin y administracin adicional. Prescriptions: Guaifenesin [Children's Chest Congestion] 100 mg PO Q6 PRN #1 liquid PRN Reason: Cough Ibuprofen [Motrin] 600 mg PO Q6 PRN #20 tab PRN Reason: Pain, Moderate (4-7) Instructions: Viral Syndrome (ED) Forms: Gen Discharge Inst Divehi Print Language: ENGLISH - Clinical Impression Clinical Impression: Viral syndrome - Scribe Statement The provider has reviewed the documentation as recorded by the Scribe [facility] Provider Attestation: All medical record entries made by the Scribe were at my direction and personally dictated by me. I have reviewed the chart and agree that the record accurately reflects my personal performance of the history, physical exam, medical decision making, and the department course for this patient. I have also personally directed, reviewed, and agree with the discharge instructions and disposition.
== END 2017-03-28 15:09 | disposition home or self-care (01) ==
LOC: C.ER 11:54
DX: B34.9 Viral infection, unspecified (principal)

== ENCOUNTER 2017-05-18 10:32 | Emergency (ER) | payer OTHER ==
[2017-05-18 10:33] VITALS: BMI 23.1
[2017-05-18 10:55] VITALS: RESP 20; TEMP 98.1; O2SAT 100
--- NOTE | 2017-05-18 11:36 | C.PDOC ---
History Of Present Illness 52 year old male with PMHx of HTN, HLD, and IDDM presents to the ED c/o right leg swelling that has been going on since April. Patient reports he had 2 surgeries on his right knee s/p tibial fracture last year. Most recent in December [address] Purcell. Patient had his cast removed on April 28 and since then he noticed his leg has been swelling. Patient states he goes to physical therapy 3 times per week, but today they sent him to ER for evaluation of the swelling. No new trauma. No change in sensation. Patient denies prior Hx of blood clots, SOB, leg pain, CP, headache, weakness, numbness. Time Seen by Provider: 05/18/17 11:08 Chief Complaint (Nursing): Lower Extremity Problem/Injury History Per: Patient History/Exam Limitations: no limitations Onset/Duration Of Symptoms: Days Current Symptoms Are (Timing): Still Present Recent travel outside of the [place]: No Additional History Per: Patient - Ankle/Foot Description Of Injury: Other (Surgery) Currently Unable To: Straighten Past Medical History Reviewed: Historical Data, Nursing Documentation, Vital Signs Vital Signs: Last Vital Signs Temp 98.1 F 05/18/17 16:02 Pulse 90 05/18/17 16:02 Resp 20 05/18/17 16:02 BP 165/87 H 05/18/17 16:02 Pulse Ox 100 05/18/17 16:02 - Medical History PMH: Diabetes, Fractures (right leg uses a cane to walk with), HTN, Hypercholesterolemia Denies: Chronic Kidney Disease Other Surgeries: Right knee surgery twice, last one in December 2016 - [facility] Procedures (12/31/16) EXCISION OF RIGHT KNEE JOINT, PERC ENDO APPROACH (12/31/16) OTHER SKIN & SUBQ I D (06/09/14) REPAIR RIGHT KNEE JOINT, PERCUTANEOUS ENDOSCOPIC APPROACH (12/31/16) REPAIR RIGHT KNEE REGION, OPEN APPROACH (04/07/16) REPOSITION RIGHT TIBIA WITH INT FIX, OPEN APPROACH (04/07/16) REPOSITION RIGHT TIBIA, EXTERNAL APPROACH (04/07/16) SUPPLEMENT RIGHT TIBIA WITH SYNTH SUB, OPEN APPROACH (04/07/16) TOE AMPUTATION (06/09/14) VENOUS CATHETERIZATION NEC (06/09/14) Family History: States: Unknown Family Hx - Social History Hx Tobacco Use: No Hx Alcohol Use: Yes (social drinker, sparingly) Hx Substance Use: No - Immunization History Hx Tetanus Toxoid Vaccination: No Hx Influenza Vaccination: No Hx Pneumococcal Vaccination: No Review Of Systems Constitutional: Negative for: Fever, Chills Cardiovascular: Negative for: Chest Pain Respiratory: Negative for: Shortness of Breath Musculoskeletal: Positive for: Leg Pain (right, swelling) Skin: Negative for: Rash Neurological: Negative for: Weakness, Numbness Physical Exam - Physical Exam Appears: Non-toxic, No Acute Distress Skin: Normal Color, Warm, Dry Head: Atraumatic, Normacephalic Eye(s): bilateral: Normal Inspection, EOMI Nose: No Discharge Oral Mucosa: Moist Neck: Normal ROM, Supple Chest: Symmetrical Respiratory: No Accessory Muscle Use Extremity: Normal ROM, No Tenderness, No Calf Tenderness, Capillary Refill (<2 seconds), Swelling (Right leg from knee down ), Other (Right great toe amputated , multiple healed surgical scasr noted on right knee; (+) Valgus test) Extremity: Bilateral: Normal Color And Temperature, Normal ROM Pulses: Left Dorsalis Pedis: Normal, Right Dorsalis Pedis: Normal Neurological/Psych: Oriented x3, Normal Motor, Normal Sensation Gait: With Assistance (with cane, pt walks with valgus gait) ED Course And Treatment O2 Sat by Pulse Oximetry: 100 (On RA) Pulse Ox Interpretation: Normal Progress Note: Plan: - Venous duplex scan. - X-Ray. 14:30- called Dr. Purcell answering service waiting for a call back. Dr Purcell instructed outpt follow up . Case was discussed with Dr. garcia who evaluated pt at bedside and agreed with the plan and treatment. Disposition - Disposition Referrals: [facility] [Outside] Toan Purcell MD [Staff Provider] - Disposition: HOME/ ROUTINE Disposition Time: 15:38 Condition: STABLE Additional Instructions: [place] tu jose. Vaya a el mdico ortopdico clnica en 1-3 mclean sin falta, para mas evaluacin. [place] los medicamentos elizabeth indicado. Instructions: Knee Pain (DC) Forms: adRise (Yi) Print Language: ZAMBIAN - Clinical Impression Clinical Impression: Right leg swelling - PA / WAREHOUSE OPERATOR / Resident Statement MD/DO has reviewed & agrees with the documentation as recorded. - Scribe Statement The provider has reviewed the documentation as recorded by the Scribe León Lyons All medical record entries made by the Scribe were at my direction and personally dictated by me. I have reviewed the chart and agree that the record accurately reflects my personal performance of the history, physical exam, medical decision making, and the department course for this patient. I have also personally directed, reviewed, and agree with the discharge instructions and disposition.
--- NOTE | 2017-05-18 14:45 | VASCLAB ---
PROCEDURE: Right Lower Extremity Venous Duplex Exam. HISTORY: swelling PRIORS: None. TECHNIQUE: Right common femoral, femoral, popliteal and posterior tibial, peroneal and great saphenous veins were evaluated. Flow was assessed with color Doppler, compressibility, assessment of phasic flow and augmentation response. Report prepared by RUBINA Parsons, RVT FINDINGS: RIGHT: 1. Common Femoral Vein: 1.1. Compressibility - Fully compressible: Thrombus - None: Flow - Phasic: Augmentation -Normal: Reflux - None. 2. Femoral Vein: 2.1. Compressibility - Fully compressible: Thrombus - None: Flow - Phasic: Augmentation -Normal: Reflux - None. 3. Popliteal Vein: 3.1. Compressibility - Fully compressible: Thrombus - None: Flow - Phasic: Augmentation -Normal: Reflux - None. 4. Posterior Tibial Vein: 4.1. Compressibility - Fully compressible: Thrombus - None: Flow - Phasic: Augmentation -Normal: Reflux - None. 5. Peroneal Vein: 5.1. Compressibility - Fully compressible: Thrombus - None: Flow - Phasic: Augmentation -Normal: Reflux - None. 6. Great Saphenous Vein: 6.1. Compressibility - Fully compressible: Thrombus -None: Flow - Phasic: Augmentation - Normal: Reflux - None. OTHER FINDINGS: IMPRESSION: No evidence of deep or superficial vein thrombosis of the right lower extremity with excellent venous flow. Normal valve function noted of the right side. Normal venous flow noted in the left common femoral vein.
--- NOTE | 2017-05-18 15:55 | RAD ---
PROCEDURE: Radiographs of the right tibia and fibula. HISTORY: swelling COMPARISON: None available. TECHNIQUE: Frontal and lateral views obtained. FINDINGS: BONES: No acute fracture. Proximal/mid tibial orthopedic hardware. JOINT SPACES: Unremarkable. OTHER FINDINGS: None. IMPRESSION: No demonstrated acute fracture or dislocation. Prior ORIF of proximal tibia. No evidence of hardware complication.
--- NOTE | 2017-05-18 15:56 | RAD ---
PROCEDURE: Right Knee Radiographs. HISTORY: pain COMPARISON: Knee radiographs dated 09/10/2016. FINDINGS: BONES: No acute fracture. Proximal tibial orthopedic hardware JOINTS: Degenerative changes. JOINT EFFUSION: None. OTHER FINDINGS: None. IMPRESSION: No demonstrated acute fracture or dislocation. Prior ORIF of proximal tibia. No evidence of hardware complication.
--- NOTE | 2017-05-18 15:58 | RAD ---
PROCEDURE: Right Ankle Radiographs. HISTORY: swellling COMPARISON: None FINDINGS: BONES: No acute fracture. Transmetatarsal amputation of 1st digit. JOINTS: Degenerative changes. Ankle mortise maintained. Talar dome intact SOFT TISSUES: Lateral malleolar soft tissue swelling. Small ankle joint effusion. OTHER FINDINGS: None. IMPRESSION: No demonstrated acute fracture or dislocation.
--- NOTE | 2017-05-18 15:59 | RAD ---
PROCEDURE: Right Foot Radiographs. HISTORY: swelling COMPARISON: Right foot radiographs dated 06/11/2014. FINDINGS: BONES: No acute fracture. First digit transmetatarsal amputation redemonstrated. JOINTS: Degenerative changes. SOFT TISSUES: Lateral malleolar soft tissue swelling. OTHER FINDINGS: None. IMPRESSION: No demonstrated acute fracture or dislocation.
[2017-05-18 16:03] VITALS: BP 165/87; PULSE 90
== END 2017-05-18 16:03 | disposition home or self-care (01) ==
LOC: C.ER 10:32
DX: M79.89 Other specified soft tissue disorders (principal); I10 Essential (primary) hypertension; E78.00 Pure hypercholesterolemia, unspecified; E11.9 Type 2 diabetes mellitus without complications; Z87.81 Personal history of (healed) traumatic fracture

== ENCOUNTER 2018-05-26 10:44 | Outpatient (CLI) | payer OTHER | END 2018-05-26 10:45 | disposition home or self-care (01) | LOC: C.CTH 10:44 ==